=== PATIENT | male | born 2000 | race Caucasian/White ===

== ENCOUNTER 2020-10-01 07:49 | Emergency (ER) | payer MEDICARE, OTHER ==
[~2020-10-01 07:49] MED LIST: AMOXICILLIN500 MG PO; AUGMENTIN 875-1 EACH PO; BROMFED DM COU473 ML PO; FLEXERIL5 MG PO; MEDROL 4MG DOSEP4 MG PO; MOTRIN600 MG PO; ONDANSETRON HCL4 MG PO; PAROEX473 ML PO; ZOFRAN8 MG PO; ZPAK PO
[2020-10-01] MEDS ORDERED: NORCO 5-325 TA1 EACH PO (09:20)
[2020-10-01] MEDS ORDERED: KEFLEX250 MG PO (09:20)
[2020-10-01] MEDS ORDERED: NAPROXEN500 MG PO (09:20)
== END 2020-10-01 12:00 | disposition home or self-care (01) ==
LOC: FER 07:49
DX: S93.402A Sprain of unspecified ligament of left ankle, initial encounter (principal); S80.01XA Contusion of right knee, initial encounter; F17.210 Nicotine dependence, cigarettes, uncomplicated; W01.0XXA Fall on same level from slipping, tripping and stumbling without subsequent striking against object, initial encounter; Y93.02 Activity, running
CPT/HCPCS: 73560; 73610

== ENCOUNTER 2021-10-14 17:58 | Emergency (ER) | payer MEDICARE, OTHER ==
[~2021-10-14 17:58] MED LIST changes: +KEFLEX250 MG PO; +NAPROXEN500 MG PO; +NORCO 5-325 TA1 EACH PO
[2021-10-14 19:10] LABS: BASOPHIL 0.5 % (0-2); HCT 44.9 % (42.0-52.0); HGB 15.4 g/dl (13.2-18.0); MCH 28.9 pg (25.0-31.0); MCHC 34.3 g/dL (32.0-36.0); MCV 84.4 fL (78.0-100.0); MONOCYTE 9.1 % (0-12); MPV 9.5 fL (6.0-9.5); NEUTROPHIL 51.1 % (41-80); NRBC 0; PLT 309 K/uL (150-400); RBC 5.32 M/uL (4.70-6.00); RDW 12.1 % (11.5-14.0); WBC 9.5 K/uL (4.0-10.5)
[2021-10-14 19:32] LABS: ALBUMIN 4.3 g/dL (3.4-5.0); BILIRUBIN - TOTAL 0.8 mg/dL (0.2-1.0); BUN/CREAT RATIO (CALC) 20.2 RATIO; CREATININE 0.84 mg/dL (0.67-1.17); GLOBULIN (CALCULATION) 3.8 g/dL; POTASSIUM 3.5 mmol/L (3.5-5.1); TOTAL PROTEIN 8.1 g/dL (6.4-8.2)
== END 2021-10-14 20:06 | disposition home or self-care (01) ==
LOC: FER 17:58
PROVIDERS: Emergency Medicine
DX: F41.0 Panic disorder [episodic paroxysmal anxiety] (principal); F41.9 Anxiety disorder, unspecified; R20.2 Paresthesia of skin; F17.200 Nicotine dependence, unspecified, uncomplicated
CPT/HCPCS: 36415; 71045; 80053; 84484; 85025; 85379; 93005